=== PATIENT | male | born 1935 | race Caucasian/White ===

== ENCOUNTER 2018-03-31 21:41 | Observation (INO) | payer MEDICARE, OTHER ==
[2018-03-31] MEDS ORDERED: Acetaminophen 325 MG TAB PO PRN (23:33)
[2018-03-31] MEDS ORDERED: Ondansetron HCl/PF 4 MG/2 ML Vial IVP PRN (23:33)
[2018-03-31] MEDS ORDERED: Bisacodyl 5 MG TAB PO PRN (23:33)
[2018-03-31 23:35] LABS: Troponin I 0.021 ng/mL (< 0.028)
[2018-04-01 01:30] VITALS: BMI 27.6
[2018-04-01] MEDS ORDERED: Carvedilol 6.25 MG TAB PO SCH (01:30)
[2018-04-01] MEDS ORDERED: Atorvastatin Calcium 40 MG TAB PO SCH ×2 (01:30→21:00)
[2018-04-01 02:24] LABS: Troponin I 0.052 ng/mL (< 0.028)
--- NOTE | 2018-04-01 07:40 | HP ---
CHIEF COMPLAINT: Shortness of breath. HISTORY OF PRESENT ILLNESS: This is an 82-year-old male with past medical history of coronary artery disease status post stents x3, history of atrial fibrillation, hypertension, CHF, anemia presenting with shortness of breath. Per the patient, his shortness of breath started in the afternoon on the d ay of admission. The patient stated that he has been having shortness of breath for the past 3 month s and he has been taking "water pills" which has been helping him with his shortness of breath. The patient states that his pills are running low, so he took 2 over the past couple of days and patient has seen that his lower extremities have been slightly edematous and that he has been getting more sh ortness of breath. Therefore, the patient [facility] and the patient was seen and th e patient is being transferred to our hospital from [facility] ED to be treated for CHF exacerbation. The p atient denies any headaches, nausea, vomiting, chest pain, palpitations, abdominal pain. NOTE: Of note in 2014 the patient had an echo which showed ejection fraction of 50-55% and the patie nt had a cardiac catheterization in 2014 and during that time, the patient had a pacemaker placed due to sick sinus syndrome. REVIEW OF SYSTEMS: Positive for dyspnea on exertion and cough. Otherwise as documented in the HPI. All other systems were reviewed and are negative. PAST MEDICAL HISTORY: Atrial fibrillation, coronary artery disease status post 3 stents, hypertensio n, CHF, anemia, hyperlipidemia, status post pacemaker. FAMILY HISTORY: Reviewed and noncontributory to this visit. SURGICAL HISTORY: Three stents, CABG x3, pacemaker. PSYCHIATRIC HISTORY: No previous psychiatric history noted. SOCIAL HISTORY: The patient is a former tobacco user. The patient smoked cigarettes and the patient quit 10 years ago. The patient lives at home. ALLERGIES: The patient is allergic to NIACIN, PLAVIX, WARFARIN. CURRENT MEDICATIONS: The patient is on atorvastatin 40 mg, lisinopril 40 mg, carvedilol 6.25 mg, fis h oil, Lasix 40 mg b.i.d. PHYSICAL EXAMINATION: VITAL SIGNS: Blood pressure is 195/108, pulse is 114, respiratory rate of 22, temperature of 97.9, o xygen saturation of 95. GENERAL APPEARANCE: The patient is lying in bed with oxygen mask on, speaking to me in full sentence s, does not appear to be in any distress at this time. The patient is alert, oriented x3. HEENT: Normocephalic, atraumatic. Pupils are equal, round, and reactive to light. Extraocular move ments are intact. No scleral icterus. The patient did have an oxygen mask on. Trachea is midline. NECK: No jugular venous distention. Neck is supple. RESPIRATORY: The patient has mild rales that can be appreciated at the bilateral lower lobes, otherw ise no wheezing appreciated. CARDIOVASCULAR: Patient has atrial fibrillation which is paced. ABDOMEN: Soft, nontender, nondistended, positive bowel sounds in all quadrants. No abdominal masses palpated. No rigidity. EXTREMITIES: Upper extremity; the patient did have 5/5 upper extremity strength and good pulses of t hat upper lower extremity. Lower extremities; the patient has 5/5 lower extremity with good pulses. Patient does have some trace edema present at the lower extremities. NEUROLOGIC: Cranial nerves II-XII grossly intact. No neurologic deficits noted. SKIN: The patient has some varicose veins noted at the lower extremities, warm, dry, and intact. PSYCHIATRIC: The patient is alert, oriented x3. Normal affect. EKG: The patient has atrial fibrillation with rapid ventricular response of 113. LABORATORY: 1. WBC is 6.1, hemoglobin is 15.5, hematocrit is 42.6, MCV of 90.7, RDW of 10.7, platelets 134. 2. Chemistry: Sodium is 136, potassium 3.9, chloride is 100, CO2 is 24, anion gap of 16, BUN is 11, creatinine is 0.89, glucose of 175. Magnesium is 2, total bilirubin is 2.2. Troponin 0.052. BNP i s 1040.5. TSH is 1.3. ASSESSMENT AND PLAN: This is an 82-year-old male presenting with: 1. Shortness of breath secondary to acute on chronic diastolic heart failure. At this point, the pa nando has received 40 IV Lasix and the patient is breathing well. We will continue DuoNeb treatment. We are going to monitor the patient on telemetry floor and we will get Cardiology due to patient's extensive cardiac history and will follow up with the morning labs. 2. History of atrial fibrillation. The patient is not on any anticoagulation. The reason is unknow n at this time. We have consulted Cardiology. Since Dr. Villegas has seen the patient in the past a nd Dr. Villegas knows the patient well and he is the one that actually did the patient's cardiac cath eterization in 2015 and also placed the patient's pacemaker, he will be able to determine if patient needs to be on anticoagulation. We will follow up with Cardiology's recommendation on why patient is not on anticoagulation. 3. History of coronary artery disease status post stents. At this time, the patient is stable. We will continue current management and will start the patient on his home medications. 4. Hypertension. The patient is currently hypertensive at this time. We will start the patient on home medications and we will give the patient blood pressure medication as needed. 5. Hyperlipidemia. Continue patient on current management. 6. Deep venous thrombosis and gastrointestinal prophylaxis.
[2018-04-01 08:58] LABS: CKMB 4.4 ng/mL (0-6.6); Troponin I 0.027 ng/mL (< 0.028)
[2018-04-01] MEDS ORDERED: OMEGA ACID ETHYL ESTERS PO SCH (09:00)
[2018-04-01] MEDS ORDERED: Non-Formulary Item 1 EACH (Lisinopril [Lisinopril] 40 MG) PO SCH (09:00)
[2018-04-01] MEDS ORDERED: Non-Formulary Item 1 EACH (Iron [Iron] 27 MG) PO SCH (09:00)
[2018-04-01] MEDS: Famotidine 20 MG TAB PO SCH (10:04)
[2018-04-01] MEDS: Carvedilol 6.25 MG TAB PO SCH ×2 (10:05→18:43)
[2018-04-01] MEDS: Ferrous Sulfate 325 MG TAB PO SCH (10:06)
[2018-04-01] MEDS: Lisinopril 20 MG TAB PO SCH (10:06)
[2018-04-01] MEDS: Fish Oil 1,000 MG CAP PO SCH ×2 (10:06→21:36)
[2018-04-01] MEDS: Furosemide 20 MG/2 ML VIAL SLOW IVP SCH (10:10)
[2018-04-01] MEDS ORDERED: Furosemide 40 MG/4 ML VIAL IVP SCH (15:30)
--- NOTE | 2018-04-01 15:40 | CON ---
DATE OF CONSULTATION: 04/01/2018 REASON FOR CONSULTATION: Shortness of breath and dizziness. HISTORY OF PRESENT ILLNESS: Mr. Bridges is a very pleasant 82-year-old gentleman with history of CAD st atus post bypass surgery in his atrial fibrillation. He also has a history of pacemaker implantation . He recently had 2 episodes of dizziness and lightheadedness. The first episode lasted 1-1/2 hours . He is unsure, which of the two symptoms were worse. There were felt to be acute in onset. No rishi st pain or pressure noted. No other symptoms. He proceeded to the local emergency room. He states he felt better and wanted to go home, but states due to elevated enzymes with a troponin of 0.05. He was subsequently admitted. PAST MEDICAL HISTORY: CAD status post bypass surgery, hyperlipidemia, hypertension, pacemaker implan tation, previous OH, stent placement x3, hypertension, hyperlipidemia, previous GI bleed. ALLERGIES: NIACIN, PLAVIX, COUMADIN. HOME MEDICATIONS: Include iron, vitamin E, glucosamine, vitamin C, aspirin, potassium, carvedilol, L asix, CoQ10, garlic, and Lipitor. REVIEW OF SYSTEMS: Ten-point review of systems is reviewed as above, otherwise negative. PHYSICAL EXAMINATION: VITAL SIGNS: Blood pressure 120/67, pulse 82, temperature 97.6. NEUROLOGIC: The patient is alert and oriented times 3 with no focal neurologic deficits. HEENT: Sclerae without icterus. Mouth has moist mucous membranes with normal pallor. NECK: No JVD. Carotid upstroke brisk. No bruits bilaterally. LUNGS: Crackles noted bilaterally. BACK: No scoliosis or kyphosis. CARDIAC: Irregularly irregular. ABDOMEN: Soft, nontender, nondistended. No peritoneal signs present. No hepatosplenomegaly. No abnormal striae. EXTREMITIES: 2+ femoral and 2+ dorsalis pedis pulses. No cyanosis, clubbing, or edema. SKIN: No gross abnormalities. PERTINENT LABORATORY DATA: Troponin 0.05, which is just above normal, bilirubin 2.2. BNP of 1040. Most recent echo in the office dated 04/2017 with LVEF 35% to 40%. Most recent stress study in the o ffice dated 07/2016 showing no significant ischemia. IMPRESSION: 1. Acute on chronic systolic heart failure. 2. Atrial fibrillation. 3. Coronary artery disease. 4. Status post bypass surgery. RECOMMENDATIONS: The patient's symptoms are suggest acute on chronic systolic heart failure. No sig nificant symptoms suggesting angina were noted. At this point, I recommend Lasix. He still has mild crackles noted bilaterally. He feels good, not to go home today, but I am concerned about readmissi on for CHF. We would give an additional dose of Lasix and monitor overnight. PLAN: Discontinue in a.m. if stable.
--- NOTE | 2018-04-01 16:13 | PDOC.PN ---
- Subjective Encounter Start Date: 04/01/18 Encounter Start Time: 11:30 Subjective: pt up in bed no complains - Objective Resuscitation Status: Resuscitation Status FULL:Full Resuscitation Vital Signs & Weight: Vital Signs (12 hours) Temp Pulse Resp BP BP Pulse Ox 04/01/18 15:33 97.7 F 82 16 130/57 L 98 04/01/18 12:03 82 18 97 04/01/18 11:38 97.6 F 112 H 12 125/67 96 04/01/18 10:06 155/78 H 04/01/18 10:05 155/78 H 04/01/18 07:26 97.4 F L 80 12 155/78 H 100 04/01/18 06:24 88 16 98 Weight Weight 176 lb 4.8 oz I&O: 03/31/18 04/01/18 04/02/18 06:59 06:59 06:59 Intake Total 250 2 Output Total 750 500 Balance -500 -498 Phys Exam - Physical Examination Neck: no nodes, no JVD, supple, full ROM Respiratory: no wheezing, no rales, no rhonchi, wheezing present, clear to auscultation bilateral Cardiovascular: RRR, no significant murmur, no rub, gallop, irregular Gastrointestinal: soft, non-tender, no distention, positive bowel sounds Dx/Plan (1) CHF (congestive heart failure) Code(s): I50.9 - HEART FAILURE, UNSPECIFIED Status: Acute (2) HTN (hypertension) Code(s): I10 - ESSENTIAL (PRIMARY) HYPERTENSION Status: Acute - Plan will continue iv lasix -: cardiology consulted * . Review of Systems - Review of Systems Respiratory: negative: Cough, Dry, Shortness of Breath, Hemoptysis, SOB with Excertion, Pleuritic Pain, Sputum, Wheezing Cardiovascular: negative: chest pain, palpitations, orthopnea, paroxysmal nocturnal dyspnea, edema, light headedness, other Gastrointestinal: negative: Nausea, Vomiting, Abdominal Pain, Diarrhea, Constipation, Melena, Hematochezia, Other Genitourinary: negative: Dysuria, Frequency, Incontinence, Hematuria, Retention , Other - Medications/Allergies Allergies/Adverse Reactions: Allergies Allergy/AdvReac Type Severity Reaction Status Date / Time clopidogrel bisulfate Allergy Verified 03/09/15 17:55 [From Plavix] niacin Allergy Verified 03/09/15 17:55 warfarin sodium Allergy Verified 03/09/15 17:55 [From Coumadin] Medications: Current Medications Acetaminophen (Tylenol) 650 mg PO Q4H PRN PRN Reason: Headache/Fever/Mild Pain (1-3) Albuterol/Ipratropium (Duoneb) 3 ml NEB [id number] Last Admin: 04/01/18 12:03 Dose: 3 ml Atorvastatin Calcium (Lipitor) 40 mg PO HS [facility] Bisacodyl (Dulcolax) 10 mg PO DAILYPRN PRN PRN Reason: Constipation Carvedilol (Coreg) 6.25 mg PO BID [facility] Last Admin: 04/01/18 10:05 Dose: 6.25 mg Famotidine (Pepcid) 20 mg PO DAILY [facility] Last Admin: 04/01/18 10:04 Dose: Not Given Ferrous Sulfate (Feosol) 325 mg PO DAILY [facility] Last Admin: 04/01/18 10:06 Dose: 325 mg Fish Oil (Fish Oil) 2,000 mg PO BID [facility] Last Admin: 04/01/18 10:06 Dose: 2,000 mg Furosemide (Lasix) 20 mg SLOW IVP DAILY [facility] Last Admin: 04/01/18 10:10 Dose: 20 mg Furosemide (Lasix) 40 mg IVP NOW [facility] Stop: 04/01/18 17:30 Lisinopril (Zestril) 40 mg PO DAILY [facility] Last Admin: 04/01/18 10:06 Dose: 40 mg Ondansetron HCl (Zofran) 4 mg IVP Q6H PRN PRN Reason: Nausea/Vomiting Sodium Chloride (Flush - Normal Saline) 10 ml IVF Q12HR PRN PRN Reason: Saline Flush Sodium Chloride (Flush - Normal Saline) 10 ml IVF PRN PRN PRN Reason: Saline Flush
[2018-04-02 08:05] VITALS: BP 143/84; TEMP 97.3
[2018-04-02] MEDS: Lisinopril 20 MG TAB PO SCH (09:24)
[2018-04-02] MEDS: Fish Oil 1,000 MG CAP PO SCH (09:24)
[2018-04-02] MEDS: Ferrous Sulfate 325 MG TAB PO SCH (09:24)
[2018-04-02] MEDS: Furosemide 20 MG/2 ML VIAL SLOW IVP SCH (09:24)
[2018-04-02] MEDS: Carvedilol 6.25 MG TAB PO SCH (09:25)
[2018-04-02] MEDS: Famotidine 20 MG TAB PO SCH ×2 (09:25→09:29)
--- NOTE | 2018-04-03 13:33 | DIS ---
DATE OF ADMISSION: 03/31/2018 DATE OF DISCHARGE: 04/02/2018 DISCHARGE DIAGNOSES: 1. Congestive heart failure. 2. Hypertension. 3. Ischemic cardiomyopathy with ejection fraction around 35%. 4. History of coronary artery disease. 5. Atrial fibrillation. HOSPITAL COURSE: The patient is an 82-year-old male with a history of coronary artery disease, shruti pierce as an outpatient by Cardiology. The patient presented with some shortness of breath, which have been intermittent for a couple of months and became more acute. He attempted to increase his Lasix, but it did not relieve his symptoms. The patient presented to an Urgent [facility] Center and subsequently was transferred with borderline elevation of troponin, which was equivocal. His EKG showed atrial f ibrillation with a rate of 113. His chest x-ray did not show substantial amount of pulmonary edema; however, he had crackles on his exam. BNP was elevated at 1040. The patient was felt to be in some acute on chronic systolic congestive heart failure. He was placed in observation on telemetry. Card iology was consulted. He noted that the most recent echocardiogram on this patient from 04/2017 reve aled an ejection fraction of 35% and he had had a negative stress test in 07/2016 with no evidence of ischemia. He felt the patient simply needed to be further diuresed, although the patient was fairly asymptomatic after initial diuresis. He did receive an additional day of diuresis and on the follow ing morning again, he felt generally asymptomatic. PHYSICAL EXAMINATION: VITAL SIGNS: His temperature was 97.3. His pulse ranged from 95 to 124 based on activity. Respirat ions were 18, O2 sat was 96% on room air, BP was 143/84. GENERAL: He was up and ambulating with no symptoms. HEART: Irregular without murmurs. LUNGS: Notable for very minimal left basilar crackles. ABDOMEN: Soft and nontender. EXTREMITIES: Warm and dry. DISPOSITION: The patient is discharged to home. DISCHARGE INSTRUCTIONS: His activity is as tolerated. He is on a [id number] heart healthy diet. He will be on vitamin C, garlic, CoQ10, Lovaza, glucosamine, lisinopril, iron, furosemide, carvedilo l, atorvastatin, and potassium. He is to follow up with Dr. Jackson within [address] Babak boothe in next available appointment. He should return to the Emergency Department should he have any pr oblems prior to that time.
== END 2018-04-02 12:10 | disposition home or self-care (01) ==
LOC: ERS 21:41 → 2SW 22:40
PROVIDERS: ADMIT Internal Medicine; ATTEND Internal Medicine
DX: I11.0 Hypertensive heart disease with heart failure (principal); I50.43 Acute on chronic combined systolic (congestive) and diastolic (congestive) heart failure; D64.9 Anemia, unspecified; I25.10 Atherosclerotic heart disease of native coronary artery without angina pectoris; I49.5 Sick sinus syndrome; E78.5 Hyperlipidemia, unspecified; I48.91 Unspecified atrial fibrillation; I25.5 Ischemic cardiomyopathy; Z87.891 Personal history of nicotine dependence; Z79.82 Long term (current) use of aspirin; Z79.899 Other long term (current) drug therapy; Z88.8 Allergy status to other drugs, medicaments and biological substances; Z95.0 Presence of cardiac pacemaker; Z95.1 Presence of aortocoronary bypass graft; Z95.5 Presence of coronary angioplasty implant and graft
CPT/HCPCS: 82553; 84484 ×3; 93005; 94640 ×3; 94760; 96374; 96376 ×2; 99285; G0378 ×2; 36415; 36416; J1940; J7620

== ENCOUNTER 2019-03-25 13:30 | Outpatient (CLI) | payer MEDICARE, OTHER ==
--- NOTE | 2019-03-25 15:10 | RAD ---
CHEST 2 VIEWS: INDICATION: Dyspnea. COMPARISON: Prior exam dated 03/31/2018. FINDINGS: There is stable cardiomegaly. Chronic lung changes are similar-appearing. Post CABG change and dual -lead pacemaker is unchanged. No confluent airspace opacity or pleural effusion is noted. No acute osseous abnormality is evident. IMPRESSION: Stable exam. No acute abnormality. POS: [facility]
== END 2019-03-25 13:31 | disposition home or self-care (01) ==
LOC: RAD 13:30
PROVIDERS: ATTEND Internal Medicine Pulmonary Disease
DX: R06.00 Dyspnea, unspecified (principal)
CPT/HCPCS: 71046

== ENCOUNTER 2019-12-14 13:19 | Observation (INO) | payer MEDICARE, OTHER ==
[2019-12-14 14:31] LABS: INR-International Normal Ratio 1.3; PTT 41.7 sec (22.9-36.1)
[2019-12-14 16:33] VITALS: BMI 27.8
[2019-12-14 18:02] LABS: Troponin I 0.029 ng/mL (< 0.028)
[2019-12-14] MEDS: Carvedilol 6.25 MG TAB PO SCH (18:24)
[2019-12-14] MEDS: Atorvastatin Calcium 40 MG TAB PO SCH (20:29)
[2019-12-14 20:52] LABS: Troponin I 0.017 ng/mL (< 0.028)
--- NOTE | 2019-12-15 02:02 | HP ---
CHIEF COMPLAINT: Shortness of breath. HISTORY OF PRESENT ILLNESS: The patient is an 84-year-old male with past medical history of coronary artery disease status post prior stent and CABG, history of CHF, atrial fibrillation, hypertension, and hyperlipidemia, who presented to the hospital with complaints of worsening dyspnea on exertion for the past 2 weeks. The patient stated that his shortness of breath, which started with significant exertion are now experienced with minimal exertion. He also endorses lower extremity edema and orthopnea. He denies chest pain, cough, or fever. In the ER, the patient was noted to be clinically volume overloaded and x-ray revealed some pulmonary edema. REVIEW OF SYSTEMS: Negative except as noted in HPI. PAST MEDICAL HISTORY: As noted above. PAST SURGICAL HISTORY: CABG, pacemaker placement, and prior stenting. SOCIAL HISTORY: The patient is a former smoker. Denies alcohol use or illicit drug use. ALLERGIES: THE PATIENT IS ALLERGIC TO CLOPIDOGREL, NIACIN, AND WARFARIN. PHYSICAL EXAMINATION: GENERAL: The patient is alert and oriented x3. HEENT: Head is normocephalic and atraumatic. Extraocular muscles are intact. Pupils equal, reactive to light. NECK: Supple. CHEST: Clear to auscultation bilaterally with crackles audible at the bases. CARDIOVASCULAR: Revealed irregularly irregular rhythm with some tachycardia. No murmurs, rubs, or gallops. ABDOMEN: Soft, nontender, and nondistended. EXTREMITIES: Showed pitting edema +2. ASSESSMENT: 1. Exacerbation of heart failure with reduced ejection fraction. 2. Atrial fibrillation with rapid ventricular response. 3. Coronary artery disease. 4. Hypertension. 5. Hyperlipidemia. PLAN: 1. Place on telemetry. 2. 2 g sodium diet and 1800 mL fluid restriction. 3. Start Lasix 40 mg IV b.i.d. 4. Check echocardiogram. 5. Continue carvedilol for rate control. Also continue his home lisinopril and aspirin. Enoxaparin for DVT prophylaxis. Job ID: [id number]
[2019-12-15] MEDS: Furosemide 40 MG/4 ML VIAL SLOW IVP SCH ×2 (05:13→15:13)
[2019-12-15] MEDS: Lisinopril 20 MG TAB PO SCH (09:50)
[2019-12-15] MEDS: Enoxaparin Sodium 40 MG/0.4 ML SYRINGE SC SCH (09:50)
[2019-12-15] MEDS: Carvedilol 6.25 MG TAB PO SCH ×2 (09:50→19:56)
[2019-12-15] MEDS: Potassium Chloride 10 MEQ TAB PO SCH (09:50)
[2019-12-15] MEDS: Aspirin 325 MG TAB PO SCH (09:51)
[2019-12-15 10:40] LABS: Anion Gap 16 mmol/L (10-20); BUN (Urea Nitrogen) 16 mg/dL (8.4-25.7); Calc. Creatinine Clearance 57 mL/min (70-130); Calcium 9.3 mg/dL (7.8-10.44); Carbon Dioxide 27 mmol/L (23-31); Chloride 98 mmol/L (98-107); Estimated GFR-MDRD 62; Glucose 152 mg/dL (83-110); Potassium 3.3 mmol/L (3.5-5.1); Sodium 138 mmol/L (136-145)
[2019-12-15 10:44] LABS: Band 1 % (5-11); Hemoglobin 14.5 g/dL (14.0-18.0); Lymphocytes 12 % (21-51); MDiff Complete? YES; Mean Corpuscular HGB CONC 33.5 g/dL (32.0-36.0); Mean Corpuscular Volume 98.5 fL (78.0-98.0); Mean Platelet Volume 7.4 fL (7.4-10.4); Monocytes 7 % (0-10); Neutrophil 79 % (42-75); Platelet Count 179 thou/uL (130-400); RBC Distribution Width 13.3 % (11.5-14.5); RBC Morphology Normal; Reactive Lymphocytes 1 % (0-10); Red Blood Cell (RBC) Count 4.38 mill/uL (4.70-6.10); White Blood Cell (WBC) Count 5.4 thou/uL (4.8-10.8)
[2019-12-15] MEDS: Atorvastatin Calcium 40 MG TAB PO SCH (19:56)
--- NOTE | 2019-12-15 20:42 | PDOC.HOSPP ---
- Subjective Encounter Date: 12/15/19 - Objective Vital Signs & Weight: Vital Signs (12 hours) Temp Pulse Resp BP BP Pulse Ox 12/15/19 19:51 97.7 F 107 H 18 143/70 H 94 L 12/15/19 15:26 97.6 F 94 16 138/90 93 L 12/15/19 12:00 97.5 F L 84 15 126/61 96 12/15/19 11:21 97.6 F 95 21 H 122/59 L 94 L 12/15/19 09:50 131/79 Weight Weight 178 lb 4.8 oz I&O: 12/14/19 12/15/19 12/16/19 06:59 06:59 06:59 Intake Total 120 120 Output Total 1300 Balance 120 -1180 Result Diagrams: 12/15/19 09:50 12/15/19 09:50 Hospitalist ROS - Review of Systems Respiratory: reports: shortness of breath Cardiovascular: denies: chest pain, palpitations - Medication Medications: Active Medications Generic Name Dose Route Start Last Admin Trade Name Nori PRN Reason Stop Dose Admin Aspirin 325 mg 12/15/19 09:00 12/15/19 09:51 Aspirin PO 325 mg DAILY DEVYN Administration Atorvastatin Calcium 40 mg 12/14/19 21:00 12/15/19 19:56 Lipitor PO 40 mg HS DEVYN Administration Carvedilol 6.25 mg 12/14/19 21:00 12/15/19 19:56 Coreg PO 6.25 mg BID DEVYN Administration Enoxaparin Sodium 40 mg 12/15/19 09:00 12/15/19 09:50 Lovenox SC 40 mg 0900 DEVYN Administration Furosemide 40 mg 12/15/19 06:00 12/15/19 15:13 Lasix SLOW IVP 40 mg 0600,1400 DEVYN Administration Lisinopril 40 mg 12/15/19 09:00 12/15/19 09:50 Zestril PO 40 mg DAILY DEVYN Administration Potassium Chloride 10 meq 12/15/19 08:00 12/15/19 09:50 Klor-Con 10 PO 10 meq QAM-WM DEVYN Administration - Exam General Appearance: NAD, awake alert ENT: normocephalic atraumatic Neck: supple Heart: irregular Respiratory: normal chest expansion, no tachypnea, rhonchi Gastrointestinal: soft Neurological: cranial nerve grossly intact Hosp A/P - Plan Acute on chronic heart failure with reduced ejection fraction Atrial fibrillation with rapid ventricular response Coronary artery disease Hypertension Placed in telemetry. Strict intake and output. 2 g sodium diet. 1800 cc fluid restriction. Check echocardiogram. 40 MG IV Lasix twice daily. Rate is controlled on carvedilol. Replace potassium.
[2019-12-16 04:07] LABS: Hemoglobin 12.6 g/dL (14.0-18.0); Hypochromia SLIGHT = 6-15 cells (100X) (0-5/hpf); Lymphocytes 11 % (21-51); MDiff Complete? YES; Mean Corpuscular HGB CONC 34.7 g/dL (32.0-36.0); Mean Corpuscular Hemoglobin 33.7 pg (27.0-31.0); Mean Corpuscular Volume 97.1 fL (78.0-98.0); Mean Platelet Volume 7.4 fL (7.4-10.4); Monocytes 6 % (0-10); Neutrophil 83 % (42-75); Platelet Count 142 thou/uL (130-400); Platelet Morphology Comment Appears Adequate; RBC Distribution Width 13.1 % (11.5-14.5); Red Blood Cell (RBC) Count 3.73 mill/uL (4.70-6.10); White Blood Cell (WBC) Count 5.1 thou/uL (4.8-10.8)
[2019-12-16 04:08] LABS: Anion Gap 13 mmol/L (10-20); BUN (Urea Nitrogen) 17 mg/dL (8.4-25.7); Calc. Creatinine Clearance 64 mL/min (70-130); Calcium 8.7 mg/dL (7.8-10.44); Carbon Dioxide 27 mmol/L (23-31); Chloride 99 mmol/L (98-107); Estimated GFR-MDRD 74; Glucose 123 mg/dL (83-110); Sodium 136 mmol/L (136-145)
[2019-12-16] MEDS: Furosemide 40 MG/4 ML VIAL SLOW IVP SCH (05:31)
[2019-12-16] MEDS: Lisinopril 20 MG TAB PO SCH (08:54)
[2019-12-16] MEDS: Enoxaparin Sodium 40 MG/0.4 ML SYRINGE SC SCH (08:55)
[2019-12-16] MEDS: Carvedilol 6.25 MG TAB PO SCH (08:55)
[2019-12-16] MEDS: Aspirin 325 MG TAB PO SCH (08:55)
[2019-12-16] MEDS: Potassium Chloride 10 MEQ TAB PO SCH (08:55)
[2019-12-16 11:34] VITALS: BP 135/70; TEMP 97.3
--- NOTE | 2019-12-16 21:33 | DIS ---
DATE OF ADMISSION: 12/14/2019 DATE OF DISCHARGE: 12/16/2019 DISCHARGE DIAGNOSIS: 1. Acute on chronic heart failure with reduced ejection fraction. 2. Atrial fibrillation with rapid ventricular response. 3. Acute respiratory failure with hypoxia. 4. Coronary artery disease. 5. Hypertension. DISCHARGE MEDICATIONS: 1. Aspirin 325 mg orally daily. 2. Atorvastatin 40 mg oral nightly. 3. Carvedilol 6.25 mg tablet, 2 tablets orally twice daily. 4. Lisinopril 40 mg orally daily. 5. Potassium chloride 10 mEq orally daily. 6. Furosemide 20 mg orally twice daily. 7. Vitamin C 400 units orally daily. 8. Garlic 1000 mg orally daily. 9. [place]-3 fatty acids 2 g orally twice daily. 10. Anoro Ellipta one puff inhaled daily. HISTORY OF PRESENT ILLNESS AND HOSPITAL COURSE: This is an 84-year-old male with past medical history of coronary artery disease status post prior stenting and CABG, history of congestive heart failure with reduced ejection fraction, atrial fibrillation, hypertension, and hyperlipidemia, who presented to the hospital with worsening shortness of breath for the past 2 weeks associated with orthopnea and lower extremity edema. Chest x-ray revealed evidence of pulmonary edema. The patient was admitted to the hospital and started on IV diuretics, low-sodium diet, fluid restriction, which enabled us to achieve negative fluid balance leading to improvement in his shortness of breath and lower extremity edema and resolution of oxygen requirements. The patient was instructed to continue his home medications and to measure his weight daily and if his weight is rising, to double his dose of Lasix on that day. Job ID: [id number]
--- NOTE | 2019-12-18 14:52 | EKG ---
Test Reason : Blood Pressure : / mmHG Vent. Rate : 096 BPM Atrial Rate : 090 BPM P-R Int : 000 ms QRS Dur : 100 ms QT Int : 366 ms P-R-T Axes : 000 -03 226 degrees QTc Int : 462 ms Atrial fibrillation with frequent ventricular-paced complexes Prolonged QT Abnormal ECG Confirmed by SMITH CLARKE, LIZZY ([id number]), clinical editor OLU CHINCHILLA ([id number]) on 12/18/2019 2:52:12 PM Referred By: Confirmed By:LIZZY MTZ MD
== END 2019-12-16 15:05 | disposition home or self-care (01) ==
LOC: ERS 13:19 → 2NO 13:52
PROVIDERS: ADMIT Internal Medicine; ATTEND Internal Medicine
DX: I11.0 Hypertensive heart disease with heart failure (principal); I50.23 Acute on chronic systolic (congestive) heart failure; I48.91 Unspecified atrial fibrillation; J96.01 Acute respiratory failure with hypoxia; I25.10 Atherosclerotic heart disease of native coronary artery without angina pectoris; E78.5 Hyperlipidemia, unspecified; E78.00 Pure hypercholesterolemia, unspecified; Z87.891 Personal history of nicotine dependence; Z79.82 Long term (current) use of aspirin; Z79.899 Other long term (current) drug therapy; Z88.8 Allergy status to other drugs, medicaments and biological substances; Z95.0 Presence of cardiac pacemaker; Z95.1 Presence of aortocoronary bypass graft; Z95.5 Presence of coronary angioplasty implant and graft
CPT/HCPCS: 36415; 80048; 85007; 85027; 85610; 85730; 93005; 93306; 93798; 96372; 96374; 96376; G0378; J1650; J1940

== ENCOUNTER 2021-05-09 09:52 | Outpatient (CLI) | payer MEDICARE, OTHER | END 2021-05-09 09:53 | disposition home or self-care (01) | LOC: RAD 09:52 | PROVIDERS: ATTEND Internal Medicine Pulmonary Disease | DX: R06.09 Other forms of dyspnea (principal) | CPT/HCPCS: 71046 ==